=== PATIENT | male | born 1940 | race Hispanic/Latino ===

== ENCOUNTER → 2024-09-27 | Day surgery (SDC) | payer MEDICARE ==
[2024-09-24 11:29] LABS: BASOPHILS % 0.9 % (0.0-1.0); EOSINOPHILS % 7.2 % (0.0-6.0); LYMPHOCYTES % 32.5 % (18.0-39.1); MONOCYTES % 11.0 % (4.4-11.3); NEUTROPHILS % 47.8 % (38.7-80.0); RED CELL DISTRIBUTION WIDTH 13.6 % (11.7-14.4)
[~2024-09-27] MED LIST: ACETAMINOPHEN-1 EAC4 PO; ALFUZOSIN HCL10 MG PO; AMITIZA24 MCG PO; AMLODIPINE BESYL5 MG PO; ASPIRIN EC81 MG PO; CARVEDILOL3.125 MG PO; COQ-10100 MG PO; CRESTOR10 MG PO; EPHEDRINE SULFATE INJ 50 MG/ML VIAL ONE; HYDROCHLOROTH12.5 MG PO; LACTATED RINGER'S 1,000 ML ONE; LEXAPRO10 MG PO; LIDOCAINE HCL 2% LOCAL INJ 5 ML SDV VIAL INJ ONE; MEMANTINE HCL E28 MG PO; MULTI-VITAMIN1 EACH PO; OMEGA 3 1,0001 EACH PO; OMEPRAZOLE40 MG PO; PLAVIX75 MG PO; POTASSIUM CITR10 MEQ PO; PRESERVISION A1 EAC6 PO; PROPOFOL IV EMULSION 10 MG/ML 20 ML VIAL ONE
[2024-09-27 10:12] VITALS: TEMP 97.6
[2024-09-27 10:45] VITALS: BP 147/82; PULSE 61; RESP 16; O2SAT 98
== END | disposition home or self-care (01) ==
LOC: ENDO 07:21
PROVIDERS: ATTEND Internal Medicine Gastroenterology
DX: R13.10 Dysphagia, unspecified (principal); K29.50 Unspecified chronic gastritis without bleeding; K21.9 Gastro-esophageal reflux disease without esophagitis; I25.10 Atherosclerotic heart disease of native coronary artery without angina pectoris; I10 Essential (primary) hypertension; G47.33 Obstructive sleep apnea (adult) (pediatric); E11.9 Type 2 diabetes mellitus without complications; E78.2 Mixed hyperlipidemia; K59.00 Constipation, unspecified; Z85.53 Personal history of malignant neoplasm of renal pelvis; Z90.5 Acquired absence of kidney; Z88.8 Allergy status to other drugs, medicaments and biological substances; Z79.02 Long term (current) use of antithrombotics/antiplatelets; Z01.812 Encounter for preprocedural laboratory examination; Z01.810 Encounter for preprocedural cardiovascular examination
CPT/HCPCS: 36415; 43239; 43249; 85025; 88305; 88342; 93005; J2003; J2704; J7121; 43450